=== PATIENT | male | born 1935 | race Caucasian/White ===

== ENCOUNTER → 2018-12-21 11:08 | Outpatient (CLI) | payer MEDICAID ==
[2018-12-21 12:39] LABS: BASOPHILS 0.4 % (0-2); EOSINOPHILS 2.1 % (0-7); HEMATOCRIT 38.5 % (42.0-54.0); HEMOGLOBIN 12.4 g/dL (13.5-17.5); IMMATURE GRANULOCYTES 0.2 % (0-5); LYMPHOCYTES 31.5 % (15-50); MCH 25.9 pg (26.0-34.0); MCHC 32.2 g/dL (31.0-37.0); MCV 80.4 fL (80.0-100.0); NEUTROPHILS 54.8 % (40-80); PLATELET COUNT 172 10x3/uL (130-400); RBC 4.79 10x6/uL (4.20-6.10); WBC 8.6 10x3/uL (4.8-10.8)
[2018-12-24 03:07] LABS: IMMUNOGLOBULIN E 11 IU/mL (6-495)
== END | disposition home or self-care (01) ==
LOC: D.RT 11:00
PROVIDERS: ATTEND Internal Medicine Pulmonary Disease
DX: J44.9 Chronic obstructive pulmonary disease, unspecified (principal)